=== PATIENT | male | born 1975 | race Caucasian/White ===

== ENCOUNTER 2017-11-23 06:53 | Emergency (ER) | payer OTHER ==
[~2017-11-23] VITALS: Ht 182.9 cm; Wt 99.8 kg
[2017-11-23] MEDS ORDERED: LISI-362 PO (07:02)
[2017-11-23] MEDS ORDERED: HYDR12.556 PO (07:02)
--- NOTE | 2017-11-23 07:08 | ER Report ---
History and Physical Time Seen By MD: 07:07 Hx. of Stated Complaint: PT REPORTS DIZZINESS, HOT FLASHES THAT STARTED UPON WAKING, HEADACHE HPI/ROS CHIEF COMPLAINT: Near syncope HISTORY OF PRESENT ILLNESS: Patient is a 42-year-old male who was traveling from [place] through [place] on his way to [facility] when he developed sudden onset of racing heart rate followed by sweats dizziness and near syncopal episode. He denies actual chest pain or pressure. He does report palpitations. He denies shortness of breath. Patient states that he's had this episodically in the past has never had diagnosis established. He is being treated for gastritis but is never had an endoscopy. His past medical history includes hypertension for which he takes combination of hydrochlorothiazide and lisinopril. Currently the patient is symptom-free. He just feels somewhat tired at this time. REVIEW OF SYSTEMS: Constitutional: No fever, no chills. Eyes: No discharge. ENT: No sore throat. Cardiovascular: No chest pain, racing palpitations. Respiratory: No cough, no shortness of breath. Gastrointestinal: No abdominal pain, no vomiting. Genitourinary: No hematuria. Musculoskeletal: No back pain. Skin: No rashes. Neurological: Mild headache, near syncope Allergies: Coded Allergies: gluten (Verified Allergy, Unknown, 11/23/17) Home Meds Reported Medications Hydrochlorothiazide (HYDROCHLOROTHIAZIDE) 25 Mg Tablet, 1 TAB PO QDAY, TAB 11/23/17 Lisinopril (LISINOPRIL) 40 Mg Tablet, 40 MG PO QDAY, TAB 11/23/17 Discontinued Reported Medications Lisinopril (LISINOPRIL) 10 Mg Tablet, 10 MG PO QDAY, TAB 11/23/17 Hydrochlorothiazide (HYDROCHLOROTHIAZIDE) 12.5 Mg Capsule, 1 TAB PO QDAY, CAPSULE 11/23/17 Past Medical/Surgical History Hypertension;l history of renal nodule that was recently diagnosed on MRI and will be followed up by a repeat imaging study in 9 months Constitutional Vital Sign - Last 24 Hours 11/23/17 11/23/17 11/23/17 11/23/17 06:58 06:58 07:03 07:08 Temp 97.6 Pulse 67 69 67 Resp 16 B/P (MAP) 116/73 116/73 (87) Pulse Ox 93 88 93 92 O2 Delivery Room Air 11/23/17 11/23/17 11/23/17 11/23/17 07:13 07:18 07:23 07:28 Pulse 71 73 68 70 Pulse Ox 93 91 90 92 11/23/17 11/23/17/12/0911/23/17 07:30 07:33 07:34 07:35 Pulse 66 63 87 75 B/P (MAP) 113/65 (81) 104/61 (75) 104/61 (75) 112/69 (83) 109/67 (81) Pulse Ox 91 11/23/17 11/23/17 11/23/17 11/23/17 07:36 07:37 07:38 07:48 Pulse 64 B/P (MAP) 112/69 (83) 109/67 (81) Pulse Ox 93 93 11/23/17 11/23/17 11/23/17 11/23/17 07:53 07:58 08:00 08:03 Pulse 70 63 67 Resp 9 16 19 B/P (MAP) 112/61 (78) Pulse Ox 93 93 93 11/23/17 11/23/17 11/23/17 11/23/17 08:08 08:13 08:18 08:23 Pulse 65 66 69 64 Resp 21 11 Pulse Ox 93 94 92 93 11/23/17 11/23/17 11/23/17 11/23/17 08:28 08:30 08:33 08:38 Pulse 67 69 79 B/P (MAP) 120/72 (88) Pulse Ox 93 93 93 11/23/17 11/23/17 11/23/17 11/23/17 08:43 08:52 08:57 09:00 Pulse 70 76 67 B/P (MAP) 118/68 (85) Pulse Ox 92 91 11/23/17 11/23/17 11/23/17 11/23/17 09:12 09:27 09:30 09:42 Pulse 74 69 72 Resp 12 10 B/P (MAP) 106/67 (80) Pulse Ox 90 93 92 Intake and Output 11/23/17 11/23/17 11/24/17 15:00 23:00 07:00 Intake Total 1000 ml Balance 1000 ml Physical Exam General Appearance: The patient is alert, has no immediate need for airway protection and no signs of toxicity. Eyes: Pupils equal and round no pallor or injection. ENT, Mouth: Mucous membranes are dry; thyroid normal size no nodules Respiratory: There are no retractions, lungs are clear to auscultation. Cardiovascular: Regular rate and rhythm. [ ] Gastrointestinal: Abdomen is soft and non tender, no masses, bowel sounds normal. Neurological: Awake alert GCS is 15 Skin: Warm and dry, no rashes. Musculoskeletal: Neck is supple non tender. Extremities are nontender, nonswollen and have full range of motion. Medical Decision Making Data Points Result Diagram: 11/23/1718 11/23/1718 Laboratory Hematology Test 11/23/17 07:18 11/23/17 07:30 11/23/17 07:45 11/23/17 10:00 Red Blood Count 6.05 M/uL (4.00-5.60) Mean Corpuscular Volume 84.4 fL (80.0-96.0) Mean Corpuscular Hemoglobin 29.2 pg (26.0-33.0) Mean Corpuscular Hemoglobin Concent 34.6 g/dL (32.0-36.0) Red Cell Distribution Width 13.4 % (11.5-14.5) Mean Platelet Volume 8.0 fL (7.2-11.1) Neutrophils (%) (Auto) 59.5 % (39.4-72.5) Lymphocytes (%) (Auto) 30.9 % (17.6-49.6) Monocytes (%) (Auto) 7.8 % (4.1-12.4) Eosinophils (%) (Auto) 1.1 % (0.4-6.7) Basophils (%) (Auto) 0.7 % (0.3-1.4) Nucleated RBC Relative Count (auto) 0.3 /100WBC Neutrophils # (Auto) 3.5 K/uL (2.0-7.4) Lymphocytes # (Auto) 1.8 K/uL (1.3-3.6) Monocytes # (Auto) 0.5 K/uL (0.3-1.0) Eosinophils # (Auto) 0.1 K/uL (0.0-0.5) Basophils # (Auto) 0.0 K/uL (0.0-0.1) Nucleated RBC Absolute Count (auto) 0.02 K/uL Prothrombin Time 12.6 seconds (12.0-14.4) Prothromb Time International Ratio 0.95 Activated Partial Thromboplast Time 28 seconds (23-35) Sodium Level 139 mmol/L (137-145) Potassium Level 3.2 mmol/L (3.5-5.0) Chloride Level 99 mmol/L (98-107) Carbon Dioxide Level 27 mmol/L (22-30) Blood Urea Nitrogen 22 mg/dl (9-21) Creatinine 1.10 mg/dl (0.66-1.25) Glomerular Filtration Rate Calc > 60.0 Random Glucose 130 mg/dl (75-110) Calcium Level 9.6 mg/dl (8.4-10.2) Total Bilirubin 0.6 mg/dl (0.2-1.3) Aspartate Amino Transf (AST/SGOT) 33 U/L (0-35) Alanine Aminotransferase (ALT/SGPT) 63 U/L (0-56) Alkaline Phosphatase 77 U/L (0-126) B-Type Natriuretic Peptide < 5 pg/ml (0-100) Total Protein 7.3 gm/dl (6.3-8.2) Albumin 4.2 g/dl (3.5-5.0) Lipase 111 U/L (23-300) Helicobacter pylori IgG Antibody Negative (NEGATIVE) Influenza Virus Type A (PCR) Negative (NEGATIVE) Influenza Virus Type B (PCR) Negative (NEGATIVE) Urine Color Straw Urine Clarity Clear Urine pH 6.0 pH (4.8-9.5) Urine Specific [place] 1.012 Urine Protein 30 mg/dL (NEGATIVE) Urine Glucose (UA) Negative mg/dL (NEGATIVE) Urine Ketones Negative mg/dL (NEGATIVE) Urine Blood Negative (NEGATIVE) Urine Nitrite Negative (NEGATIVE) Urine Bilirubin Negative (NEGATIVE) Urine Urobilinogen Negative mg/dL (0.2-1.9) Urine Leukocyte Esterase Negative (NEGATIVE) Urine RBC <1 /HPF (0-2/HPF) Urine WBC None /HPF (0-5/HPF) Urine Squamous Epithelial Cells None /LPF (</=FEW) Urine Bacteria Negative /HPF (NONE-FEW) Urine Hyaline Casts Few /LPF (NONE-FEW) Urine Mucus None /HPF (NONE-FEW) Troponin I < 0.012 ng/ml Chemistry Test 11/23/17 07:18 11/23/17 07:30 11/23/17 07:45 11/23/17 10:00 White Blood Count 5.9 k/uL (4.5-11.0) Red Blood Count 6.05 M/uL (4.00-5.60) Hemoglobin 17.7 g/dL (14.0-18.0) Hematocrit 51.1 % (42.0-52.0) Mean Corpuscular Volume 84.4 fL (80.0-96.0) Mean Corpuscular Hemoglobin 29.2 pg (26.0-33.0) Mean Corpuscular Hemoglobin Concent 34.6 g/dL (32.0-36.0) Red Cell Distribution Width 13.4 % (11.5-14.5) Platelet Count 238 K/uL (150-450) Mean Platelet Volume 8.0 fL (7.2-11.1) Neutrophils (%) (Auto) 59.5 % (39.4-72.5) Lymphocytes (%) (Auto) 30.9 % (17.6-49.6) Monocytes (%) (Auto) 7.8 % (4.1-12.4) Eosinophils (%) (Auto) 1.1 % (0.4-6.7) Basophils (%) (Auto) 0.7 % (0.3-1.4) Nucleated RBC Relative Count (auto) 0.3 /100WBC Neutrophils # (Auto) 3.5 K/uL (2.0-7.4) Lymphocytes # (Auto) 1.8 K/uL (1.3-3.6) Monocytes # (Auto) 0.5 K/uL (0.3-1.0) Eosinophils # (Auto) 0.1 K/uL (0.0-0.5) Basophils # (Auto) 0.0 K/uL (0.0-0.1) Nucleated RBC Absolute Count (auto) 0.02 K/uL Prothrombin Time 12.6 seconds (12.0-14.4) Prothromb Time International Ratio 0.95 Activated Partial Thromboplast Time 28 seconds (23-35) Glomerular Filtration Rate Calc > 60.0 Calcium Level 9.6 mg/dl (8.4-10.2) Total Bilirubin 0.6 mg/dl (0.2-1.3) Aspartate Amino Transf (AST/SGOT) 33 U/L (0-35) Alanine Aminotransferase (ALT/SGPT) 63 U/L (0-56) Alkaline Phosphatase 77 U/L (0-126) B-Type Natriuretic Peptide < 5 pg/ml (0-100) Total Protein 7.3 gm/dl (6.3-8.2) Albumin 4.2 g/dl (3.5-5.0) Lipase 111 U/L (23-300) Helicobacter pylori IgG Antibody Negative (NEGATIVE) Influenza Virus Type A (PCR) Negative (NEGATIVE) Influenza Virus Type B (PCR) Negative (NEGATIVE) Urine Color Straw Urine Clarity Clear Urine pH 6.0 pH (4.8-9.5) Urine Specific [place] 1.012 Urine Protein 30 mg/dL (NEGATIVE) Urine Glucose (UA) Negative mg/dL (NEGATIVE) Urine Ketones Negative mg/dL (NEGATIVE) Urine Blood Negative (NEGATIVE) Urine Nitrite Negative (NEGATIVE) Urine Bilirubin Negative (NEGATIVE) Urine Urobilinogen Negative mg/dL (0.2-1.9) Urine Leukocyte Esterase Negative (NEGATIVE) Urine RBC <1 /HPF (0-2/HPF) Urine WBC None /HPF (0-5/HPF) Urine Squamous Epithelial Cells None /LPF (</=FEW) Urine Bacteria Negative /HPF (NONE-FEW) Urine Hyaline Casts Few /LPF (NONE-FEW) Urine Mucus None /HPF (NONE-FEW) Troponin I < 0.012 ng/ml Coagulation Test 11/23/17 07:18 Prothrombin Time 12.6 seconds Prothromb Time International Ratio 0.95 Activated Partial Thromboplast Time 28 seconds Urinalysis Test 11/23/17 07:45 Urine Color Straw Urine Clarity Clear Urine pH 6.0 pH (4.8-9.5) Urine Specific [place] 1.012 Urine Protein 30 mg/dL (NEGATIVE) Urine Glucose (UA) Negative mg/dL (NEGATIVE) Urine Ketones Negative mg/dL (NEGATIVE) Urine Blood Negative (NEGATIVE) Urine Nitrite Negative (NEGATIVE) Urine Bilirubin Negative (NEGATIVE) Urine Urobilinogen Negative mg/dL (0.2-1.9) Urine Leukocyte Esterase Negative (NEGATIVE) Urine RBC <1 /HPF (0-2/HPF) Urine WBC None /HPF (0-5/HPF) Urine Squamous Epithelial Cells None /LPF (</=FEW) Urine Bacteria Negative /HPF (NONE-FEW) Urine Hyaline Casts Few /LPF (NONE-FEW) Urine Mucus None /HPF (NONE-FEW) EKG/Imaging EKG Interpretation EKG shows normal sinus rhythm with ventricular rate of 62 bpm. No prior EKG for comparison Monitor Interpretation: Normal Sinus Rhythm Imaging FACILITY: [facility] PATIENT NAME: Sarwat Giordano : 1975 MR: [id number] V: [id number] EXAM DATE: ORDERING PHYSICIAN: REJI SANDOVAL TECHNOLOGIST: Location: [facility] Patient: Sarwat Giordano : 1975 Visit/Account:[id number] Date of Sevice: 11/23/2017 CHEST PA AND LAT HISTORY: Chest pain and shortness of breath. COMPARISON: None. TECHNIQUE: PA and lateral views of the chest. FINDINGS: Pulmonary: Lungs are clear. There is no pneumothorax or pleural effusion. Cardiomediastinal: Cardiac and mediastinal silhouettes are within normal limits. Bones/soft tissues: No acute osseous abnormality. The visible abdomen is normal. IMPRESSION: 1. No acute cardiopulmonary process. Report Dictated By: Dorcas Bhatt at 11/23/2017 8:00 AM Report E-Signed By: Dorcas Bhatt at 11/23/2017 8:00 AM WSN:[id number] ED Course/Re-evaluation Clinical Indication for ER IV: Hydration, IV Access ED Course 11/23/2017 7:43:35 am After history and physical exam was performed differential diagnosis was formulated which includes but is not limited to dysrhythmias, vaso-vagal hypotension, orthostatic hypotension, hyperthyroidism, acute coronary syndrome, esophageal spasm plan at this time will be cardiac workup with delta troponin at 3 hour window. My suspicion is that this represents some form of tachycardia. Patient has never had a stress test nor has he ever had a Holter monitor. Patient lives in [place] and was traveling through [place] to go fishing which is why he presented to our facility. 11/23/2017 8:05:05 am patient updated with blood work and imaging studies understands we will repeat a 3 hour troponin. No questions or concerns at this time Re-evaluation 11/23/2017 10:46:09 am patient has remained symptom-free during the emergency department visit three-hour delta troponin remains negative. Patient has no further episodes since. I did speak with the patient's primary care physician Dr. Porfirio Statnon who has a practicing [facility]. I explained my concern is that the patient may be having episodes of some type of tachycardic dysrhythmia. Workup here was unremarkable. I I will instruct the patient to call schedule follow-up appointment with Dr. Stanton for possible echocardiogram and Holter monitor testing Decision to Disposition Date: Nov 23, 2017 Decision to Disposition Time: 10:46 Depart Departure Latest Vital Signs Vital Signs Date Time Temp Pulse Resp B/P (MAP) Pulse Ox O2 Delivery O2 Flow Rate FiO2 11/23/17 09:42 72 10 92 11/23/17 09:30 106/67 (80) 11/23/17 06:58 97.6 Room Air Impression: Primary Impression: Near syncope Condition: Improved Disposition: HOME OR SELF-CARE Patient Instructions: Near Syncope (ED), Palpitations (ED) Additional Instructions: Call your primary care provider Dr. Porfirio Stanton [phone] in the next 1- 2 weeks for reevaluation and further workup of palpitations and near syncopal episode. I recommend a Holter monitor and possible echocardiogram. If your symptoms return or worsen at any time you should be seen at the nearest emergency department. Continue all your outpatient medications as prescribed. REJI SANDOVAL MD Nov 23, 2017 07:08
[2017-11-23] MEDS ORDERED: NS(*) 0.9% 1000 ML BAG 1,000 ML IV ONE (07:23)
[2017-11-23 07:33] LABS: PLATELET COUNT, AUTOMATED 238 K/uL (150-450)
[2017-11-23] MEDS ORDERED: HYDR-2966 PO (07:38)
[2017-11-23] MEDS ORDERED: LISI-374 PO (07:38)
[2017-11-23 07:44] LABS: INR 0.95
[2017-11-23] MEDS ORDERED: ACETAMINOPHEN 325 MG TAB PO ONE (07:50)
--- NOTE | 2017-11-23 08:06 | RADIOLOGY IMAGING REPORT ---
FACILITY: [facility] PATIENT NAME: Sarwat Giordano : 1975 MR: [id number] V: [id number] EXAM DATE: ORDERING PHYSICIAN: REJI SANDOVAL TECHNOLOGIST: Location: [facility] [place] Patient: Sarwat Giordano : 1975 Visit/Account:[id number] Date of Sevice: 11/23/2017 CHEST PA AND LAT HISTORY: Chest pain and shortness of breath. COMPARISON: None. TECHNIQUE: PA and lateral views of the chest. FINDINGS: Pulmonary: Lungs are clear. There is no pneumothorax or pleural effusion. Cardiomediastinal: Cardiac and mediastinal silhouettes are within normal limits. Bones/soft tissues: No acute osseous abnormality. The visible abdomen is normal. IMPRESSION: 1. No acute cardiopulmonary process. Report Dictated By: Dorcas Bhatt at 11/23/2017 8:00 AM Report E-Signed By: Dorcas Bhatt at 11/23/2017 8:00 AM WSN:[id number]
--- NOTE | 2017-11-23 08:16 | EKG ---
FACILITY: [facility] PATIENT NAME: CINDY BLANCHARD : [id number] MR: [id number] V: [id number] EXAM DATE: ORDERING PHYSICIAN: REJI SANDOVAL TECHNOLOGIST: FAUSTINO Zepeda Reason : DIZZY Blood Pressure : / mmHG Vent. Rate : 062 BPM Atrial Rate : 062 BPM P-R Int : 180 ms QRS Dur : 110 ms QT Int : 396 ms P-R-T Axes : 042 -76 -03 degrees QTc Int : 401 ms Normal sinus rhythm Left axis deviation Septal infarct , age undetermined Abnormal ECG No previous ECGs available Confirmed by GAYLE YEPEZ ([id number]) on 11/24/2017 7:44:07 AM Referred By: Confirmed By:GAYLE YEPEZ
[2017-11-23 10:49] VITALS: BP 124/78
== END 2017-11-23 10:51 | disposition home or self-care (01) ==
LOC: ER 07:24
DX: R55 Syncope and collapse (principal); R06.02 Shortness of breath; R07.89 Other chest pain; I10 Essential (primary) hypertension
CPT/HCPCS: 71046; 81001; 83690; 83880; 84443; 84484; 85025; 85610; 85730; 86677; 87502; 93005; 96360; 99284; J7030; 82040; 82247; 82310; 82374; 82435; 82565; 82947; 84075; 84132; 84155; 84295; 84450; 84460; 84520